=== PATIENT | male | born 1990 | race Caucasian/White ===

== ENCOUNTER 2022-10-08 21:36 | Emergency (ER) | payer OTHER ==
[~2022-10-08] VITALS: Ht 170.2 cm; Wt 90.7 kg
[2022-10-08 21:42] VITALS: BP 155/87
== END 2022-10-08 22:43 | disposition home or self-care (01) ==
LOC: ER 21:36
DX: T78.1XXA Other adverse food reactions, not elsewhere classified, initial encounter (principal); R09.89 Other specified symptoms and signs involving the circulatory and respiratory systems; R06.89 Other abnormalities of breathing
CPT/HCPCS: 96374; 96375; 99284-25; J1200; J2930